=== PATIENT | female | born 1960 | race Caucasian/White ===

== ENCOUNTER 2018-04-24 17:41 | Emergency (ER) | payer OTHER ==
[~2018-04-24] VITALS: Ht 170.2 cm; Wt 100.7 kg
[2018-04-24] MEDS ORDERED: PAXIL10 MG PO (18:03)
[2018-04-24 19:13] LABS: HEMATOCRIT 43.3 % (37.0-47.0); HEMOGLOBIN 15.1 gm/dL (12.0-15.0); MCH 34.8 pg (26.0-34.0); MCHC 34.8 g/dL (28.0-37.0); MPV 9.5 fl. (7.2-11.1); NUCLEATED RBCS 0 /100WBC; PLATELET COUNT* 305 thou/uL (150-400); RBC 4.33 mil/uL (4.20-5.00); RDW-CV 11.9 % (10.5-14.5); WBC 11.7 thou/uL (4.0-11.0)
[2018-04-24 19:18] LABS: ANION GAP 15 mmol/L (7-16); BUN 12 mg/dL (7-18); CALCIUM 9.2 mg/dL (8.5-10.1); CHLORIDE 94 mmol/L (98-107); CO2 23 mmol/L (21-32); CREATININE 1.2 mg/dL (0.6-1.3); GLUCOSE 112 mg/dL (70-99); POTASSIUM 3.4 mmol/L (3.5-5.1); SODIUM 132 mmol/L (136-145)
[2018-04-24 19:25] LABS: ALBUMIN 3.3 g/dL (3.4-5.0); ALKALINE PHOSPHATASE 70 U/L (46-116); LIPASE 101 U/L (73-393); SGOT 21 U/L (15-37); SGPT 36 U/L (30-65); TOTAL BILIRUBIN 0.9 mg/dL (<0.1-1.0); TOTAL PROTEIN 7.6 g/dL (6.4-8.2); TROPONIN-I LEVEL <0.06 ng/mL (<0.06)
[2018-04-24 20:06] LABS: ABSOLUTE EOSINOPHILS 0.1 thou/uL (0.0-0.7); ABSOLUTE LYMPHOCYTES 1.1 thou/uL (0.8-5.3); ABSOLUTE MONOCYTES 1.2 thou/uL (0.0-1.2); ABSOLUTE NEUTROPHILS 9.4 thou/uL (1.6-8.1); PLATELET ESTIMATE ADEQUATE
[2018-04-24 20:08] LABS: LARGE PLATELETS OCCASIONAL
[2018-04-24 20:25] LABS: URINE BLOOD 1+ (Negative); URINE CLARITY CLEAR; URINE COLOR YELLOW; URINE GLUCOSE-RANDOM NEGATIVE (Negative); URINE KETONES 1+ (Negative); URINE LEUKOCYTES-REFLEX TRACE (Negative); URINE NITRITE-REFLEX NEGATIVE (Negative); URINE PROTEIN NEGATIVE (Negative); URINE SPECIFIC GRAVITY <= 1.005 (1.005-1.030); URINE UROBILINOGEN 0.2 E.U./dl (0.2-1.0)
[2018-04-24 20:28] LABS: URINE BILIRUBIN 1+ (Negative)
[2018-04-24 20:29] LABS: ICTOTEST (BILI CONFIRMATORY) Negative (Negative)
[2018-04-24 20:38] LABS: HYALINE CASTS 4-10 Moderate /LPF (None Seen); MUCUS None Seen strn/LPF (None Seen); SQUAMOUS >10 Many /LPF (0-3)
[2018-04-24 20:39] LABS: BACTERIA-REFLEX 1-9 Few /HPF (None Seen); CRYSTALS None Seen /LPF (None Seen); URINE RBC 0-2 Rare /HPF (0-2); URINE WBC-REFLEX 0-5 Rare /HPF (0-5)
[2018-04-24] MEDS ORDERED: VENTOLIN HFA 1818 GM INH (21:02)
[2018-04-24] MEDS ORDERED: PROMETH-CODEIN 65 ML PO (21:02)
[2018-04-24] MEDS ORDERED: ZPAK PO (21:02)
[2018-04-24 21:19] VITALS: BP 145/82
--- NOTE | 2018-04-25 16:34 | EKG ---
[place] [address] ELECTROCARDIOGRAM REPORT Name: ANTONETTE MILLER [id number] Admission: 04/24/18 Attend Phys: Discharge: 04/24/18 Date of : 62 Report #: [id number] THIS REPORT FOR: //name// [facility] ED Test Date: 2018-04-24 Test Time: 19:48:03 Pat Name: ANTONETTE MILLER Department: Room: Gender: F Underwriting Clerk: : 1960 Requested By: Misa Pyle Order Number: [id number] MD: Pavan Gimenez Measurements Intervals [place] Rate: 96 P: 42 [place]: 174 QRS: 28 QRSD: 82 T: 47 QT: 345 QTc: 436 Interpretive Statements Sinus rhythm No previous ECG available for comparison Electronically Signed On 04-25-2018 16:34:34 [employer] by Pavan Gimenez [email or web address] <ELECTRONICALLY SIGNED> By: Pavan Gimenez MD, MERGED WITH [facility] 04/25/18 1634 1948 47 Pavan Gimenez MD, FACC /EPI
== END 2018-04-24 21:24 | disposition home or self-care (01) ==
LOC: M.ERS 17:41
PROVIDERS: Nurse Practitioner Family
DX: J20.9 Acute bronchitis, unspecified (principal); E86.0 Dehydration; I10 Essential (primary) hypertension; F32.9 Major depressive disorder, single episode, unspecified

== ENCOUNTER → 2019-07-02 | Outpatient (CLI) | payer OTHER ==
[~2019-07-02] MED LIST: PAXIL10 MG PO; PROMETH-CODEIN 65 ML PO; VENTOLIN HFA 1818 GM INH; ZPAK PO
--- NOTE | 2019-07-03 10:47 | TST ---
[place] [address] [employer] STRESS TEST Name: PAULSAPPHIREANTONETTE Lena Room: [facility]#: [id number] Admission: 07/02/19 Attend Phys: Mei Leos Discharge: Date of : 62 Date of Service: 07/02/19 1600 Report #: [id number] THIS REPORT FOR: cc: Mei Kapoor Samantha RNP Blick, David R. MD [facility] ~ CC: Keturah Schneider DATE OF SERVICE: 07/02/2019 INDICATIONS: Exercise stress test was requested in this patient with a history of shortness of breath. PROCEDURE: The patient was exercised on a Don protocol exercise stress test from a pretest heart rate of 104, blood pressure 138/88. RESULTS: The patient was able to exercise for a total of 6 minutes 31 seconds achieving a peak heart rate 150, which was greater than 90% of maximum predicted heart rate for the patient's age. The peak blood pressure was 212/90. In recovery, the patient had a heart rate of 102, blood pressure 167/95. The patient denied chest pain with exercise, but was terminated because of fatigue. The patient's resting ECG showed a normal sinus rhythm with no significant ST or T-wave change. With exercise, there were no arrhythmias noted. There were no significant ST-segment changes noted with exercise. IMPRESSION: 1. Clinical response, nonischemic. 2. ECG response, nonischemic. 3. Exercise capacity average. This exercise stress test was considered a low risk for predicting future cardiac events. <ELECTRONICALLY SIGNED> By: Kevin Hartman MD, FACC 07/03/19 1047 1600 2242 Kevin Hartman MD, FAC /nt
== END ==
LOC: M.CRD 14:36
DX: R06.02 Shortness of breath (principal)